=== PATIENT | female | born 1985 | race Two or more races ===

== ENCOUNTER 2016-10-16 02:17 | Emergency (ER) | payer SELFPAY ==
[~2016-10-16] VITALS: Ht 165.1 cm; Wt 54.0 kg
[2016-10-16] MEDS ORDERED: IBUPROFEN 600MG TABLET PO ONE (07:00)
[2016-10-16 11:00] VITALS: BP 119/68
== END 2016-10-16 11:09 | disposition home or self-care (01) ==
LOC: ER 02:19
DX: S51.811A Laceration without foreign body of right forearm, initial encounter (principal); X99.1XXA Assault by knife, initial encounter; Y93.89 Activity, other specified; Y92.89 Other specified places as the place of occurrence of the external cause; Y99.8 Other external cause status
CPT/HCPCS: 99283